=== PATIENT | female | born 1995 | race Hispanic/Latino ===

== ENCOUNTER 2021-09-15 09:20 | Inpatient (IN) | payer MEDICAID, OTHER, SELFPAY ==
[2021-09-15 10:04] VITALS: BMI 39.9
[2021-09-15] MEDS ORDERED: Promethazine HCl 25 MG/ML VIAL IM PRN ×3 (10:45→15:38)
[2021-09-15] MEDS ORDERED: hydrALAZINE 20 MG/ML VIAL SLOW IVP PRN ×2 (10:45→15:38)
[2021-09-15] MEDS ORDERED: Famotidine/PF 20 mg/2ml Vial SLOW IVP PRN (10:45)
[2021-09-15] MEDS ORDERED: Lactated Ringer's 1,000 ML IV SCH (10:45)
[2021-09-15] MEDS ORDERED: Ondansetron PF 4 MG/2 ML Vial IVP PRN ×3 (10:45→15:38)
[2021-09-15] MEDS ORDERED: ceFAZolin 2 GM/Dextrose 50 ML 2 GM in Premix Bag 1 BAG IVPB SCH (10:45)
[2021-09-15] MEDS ORDERED: Azithromycin 500 MG in Sodium Chloride 0.9% 250 ML 250 ML IVPB SCH (10:45)
[2021-09-15] MEDS ORDERED: Bicitra 30 ML UDCUP PO PRN (10:45)
[2021-09-15 11:00] LABS: Hemoglobin 11.6 g/dL (12.0-15.5); Mean Corpuscular HGB CONC 33.9 g/dL (32.0-36.0); Mean Corpuscular Hemoglobin 30.1 pg (27.0-33.0); Mean Corpuscular Volume 88.6 fl (81.6-98.3); Mean Platelet Volume 10.6 fl (7.4-10.4); Platelet Count 221 10x3/uL (150-450); RBC Distribution Width 13.1 % (11.5-14.5); Red Blood Cell (RBC) Count 3.86 10x6/uL (3.90-5.03); White Blood Cell (WBC) Count 9.7 10x3/uL (3.5-10.5)
[2021-09-15 11:31] LABS: SARS-CoV-2 NAA Rapid Test Not Detected (NotDetected)
[2021-09-15] MEDS ORDERED: Morphine PF 10 MG/10 ML VIAL ONE (11:50)
[2021-09-15] MEDS ORDERED: ePHEDrine Sulfate 50 MG/10 ML VIAL ONE (11:51)
[2021-09-15] MEDS ORDERED: Ondansetron PF 4 MG/2 ML Vial ONE (11:51)
[2021-09-15] MEDS ORDERED: Dexamethasone 4 mg/ml Vial ONE (11:51)
[2021-09-15] MEDS ORDERED: Ketorolac Tromethamine 30 MG/ML VIAL ONE (11:51)
[2021-09-15] MEDS ORDERED: Oxytocin 10 UNITS/ML VIAL ONE (11:51)
[2021-09-15] MEDS ORDERED: Methylergonovine 0.2 MG/ML VIAL ONE (12:32)
[2021-09-15] MEDS ORDERED: Naloxone HCl 0.4 mg/ml Vial IVP PRN ×2 (13:09)
[2021-09-15] MEDS ORDERED: Promethazine HCl 25 MG SUPP PR PRN (13:09)
[2021-09-15] MEDS ORDERED: Meperidine HCl/PF 25 MG/ML VIAL SLOW IVP PRN (13:09)
[2021-09-15] MEDS ORDERED: Hydrocerin (Eucerin) Cream 120 gm Jar TOP PRN (13:09)
[2021-09-15] MEDS ORDERED: Naloxone HCl 0.4 mg/ml Vial IV PRN (13:09)
[2021-09-15] MEDS ORDERED: Fentanyl 100 MCG/2 ML VIAL SLOW IVP PRN (13:09)
[2021-09-15] MEDS ORDERED: Ondansetron HCl/PF 4 MG/2 ML Vial IVP PRN (13:09)
[2021-09-15] MEDS ORDERED: diphenhydrAMINE 50 MG/ML VIAL IVP PRN (13:09)
[2021-09-15] MEDS ORDERED: Ketorolac Tromethamine 30 MG/ML VIAL IVP PRN (13:09)
[2021-09-15] MEDS ORDERED: Ketorolac Tromethamine 30 MG/ML VIAL IVP SCH (13:15)
[2021-09-15] MEDS ORDERED: Communication Order-Pharmacy FS SCH (13:15)
[2021-09-15 13:25] LABS: Hep B Surf Ag Non-Reactive S/CO (NonReactive)
[2021-09-15 13:26] LABS: Syphilis Antibody Nonreactive (Nonreactive); Syphilis Antibody Index 0.04 S/CO (<1.00 Non-Reactive)
[2021-09-15] MEDS ORDERED: Boostrix 0.5 ML (Tdap) VIAL IM ONE (15:38)
[2021-09-15] MEDS ORDERED: NS w/ Oxytocin 30 units 500 ML IV SCH (15:38)
[2021-09-15] MEDS ORDERED: diphenhydrAMINE 25 MG CAP PO PRN (15:38)
[2021-09-15] MEDS ORDERED: Bisacodyl 10 MG SUPP PR PRN (15:38)
[2021-09-15] MEDS ORDERED: Lanolin Ointment 7 GM TUBE TOP PRN (15:38)
[2021-09-15] MEDS ORDERED: Simethicone Chewable 80 MG TAB PO PRN (15:38)
[2021-09-15] MEDS: Ketorolac Tromethamine 30 MG/ML VIAL IVP SCH (18:13)
[2021-09-15 19:24] LABS: HBSAg Index 0.21 S/CO (0-0.99)
[2021-09-15] MEDS: Ferrous Sulfate 325 MG TAB PO SCH (22:10)
[2021-09-15] MEDS: Docusate 100 MG CAP PO SCH (22:11)
[2021-09-16] MEDS: Ketorolac Tromethamine 30 MG/ML VIAL IVP SCH ×2 (00:26→06:25)
[2021-09-16] MEDS ORDERED: HYDROcodone/Acetaminophen 5/325 mg Tablet PO PRN (01:15)
[2021-09-16 06:20] LABS: Hemoglobin 9.1 g/dL (12.0-15.5); Mean Corpuscular Hemoglobin 29.6 pg (27.0-33.0); Mean Corpuscular Volume 89.9 fl (81.6-98.3); Platelet Count 203 10x3/uL (150-450); RBC Distribution Width 12.7 % (11.5-14.5); Red Blood Cell (RBC) Count 3.07 10x6/uL (3.90-5.03)
[2021-09-16] MEDS: Ferrous Sulfate 325 MG TAB PO SCH ×3 (07:31→22:25)
[2021-09-16] MEDS: Docusate 100 MG CAP PO SCH ×2 (07:44→22:24)
[2021-09-16] MEDS: Prenatal Vitamin 1 TAB PO SCH (07:45)
[2021-09-16] MEDS: Ibuprofen 800 MG TAB PO SCH ×2 (14:07→22:25)
[2021-09-17] MEDS: Ibuprofen 800 MG TAB PO SCH ×2 (05:40→13:45)
[2021-09-17 07:49] VITALS: BP 97/57; TEMP 98.2
[2021-09-17] MEDS: Prenatal Vitamin 1 TAB PO SCH (07:49)
[2021-09-17] MEDS: Ferrous Sulfate 325 MG TAB PO SCH (07:49)
[2021-09-17] MEDS: Docusate 100 MG CAP PO SCH (07:49)
== END 2021-09-17 17:57 | disposition home or self-care (01) | DRG 788 ==
LOC: CSHLD/OP 09:20 → CSHLD 12:42 → CSHPED 15:20
PROVIDERS: ADMIT Family Medicine; ATTEND Family Medicine
PROC: 10D00Z1 Extraction of Products of Conception, Low, Open Approach (ICD-10-PCS; principal; 2021-09-15)
DX: O34.211 Maternal care for low transverse scar from previous cesarean delivery (principal); Z20.822 Contact with and (suspected) exposure to COVID-19; Z37.0 Single live birth; Z3A.37 37 weeks gestation of pregnancy; O75.82 Onset (spontaneous) of labor after 37 completed weeks of gestation but before 39 completed weeks gestation, with delivery by (planned) cesarean section
CPT/HCPCS: 36415; 36416; 85027; 86780; 86850; 86900; 86901; 87340; J0456; J0690; J1100; J1885; J2210; J2274; J2405; J2590; J7050; S0028; U0002

== ENCOUNTER 2025-03-03 05:47 | Inpatient (IN) | payer MEDICAID, OTHER ==
[2025-03-03 06:42] VITALS: BMI 40.9
[2025-03-03] MEDS ORDERED: hydrALAZINE 20 MG/ML VIAL SLOW IVP PRN ×2 (06:46→14:11)
[2025-03-03] MEDS ORDERED: Famotidine/PF 20 mg/2ml Vial SLOW IVP PRN (06:46)
[2025-03-03] MEDS ORDERED: Ondansetron PF 4 MG/2 ML Vial IVP PRN ×4 (06:46→14:11)
[2025-03-03] MEDS ORDERED: Tranexamic Acid 1,000 MG/10 ML VIAL IVP PRN (06:46)
[2025-03-03] MEDS ORDERED: Methylergonovine 0.2 MG/ML VIAL IM PRN (06:46)
[2025-03-03] MEDS ORDERED: Carboprost 250 MCG/ML AMP IM PRN (06:46)
[2025-03-03] MEDS ORDERED: Diphenoxylate HCl/Atropine Tablet PO PRN ×2 (06:46→19:13)
[2025-03-03] MEDS ORDERED: Bicitra 30 ML UDCUP PO PRN (06:46)
[2025-03-03] MEDS ORDERED: Oxytocin 30 units/NS 500 ML 500 ML IV SCH (06:46)
[2025-03-03 07:03] LABS: Hematocrit 33.5 % (34.9-44.5); Hemoglobin 11.2 g/dL (12.0-15.5); Mean Corpuscular Hemoglobin 29.3 pg (27.0-33.0); Mean Corpuscular Volume 87.7 fL (81.6-98.3); Platelet Count 221 10x3/uL (150-450); Red Blood Cell (RBC) Count 3.82 10x6/uL (3.90-5.03); White Blood Cell (WBC) Count 8.91 10x3/uL (3.5-10.5)
[2025-03-03] MEDS ORDERED: diphenhydrAMINE 50 MG/ML VIAL IVP PRN (07:13)
[2025-03-03] MEDS ORDERED: Meperidine HCl/PF 25 MG (1 mL) VIAL SLOW IVP PRN (07:13)
[2025-03-03] MEDS ORDERED: HYDROmorphone 0.5 MG/0.5 ML SYRINGE SLOW IVP PRN (07:13)
[2025-03-03] MEDS ORDERED: Ketorolac Tromethamine 30 MG (1 mL) VIAL IVP SCH (07:15)
[2025-03-03] MEDS: CEFAZOLIN 2 GM VIAL ONE (07:29)
[2025-03-03 07:40] LABS: Syphilis Antibody Index 0.06 S/CO (<1.00 Non-Reactive)
[2025-03-03 07:41] LABS: Hep B Surf Ag - L&D Non-Reactive S/CO (NonReactive)
[2025-03-03 07:43] LABS: HIV (1/2) Antibody/Antigen Non-Reactive (NonReactive); HIV 1/2 INDEX 0.09 S/CO (<1.00)
[2025-03-03] MEDS: Erythromycin Base 0.5% Oint 1 GM TUBE ONE (09:12)
[2025-03-03] MEDS: Phenylephrine 40 MG/NS 250 ML 250 ML ONE (09:13)
[2025-03-03] MEDS: Dexamethasone 10 MG/ML VIAL ONE (09:13)
[2025-03-03] MEDS: Ondansetron PF 4 MG/2 ML Vial ONE ×2 (09:13)
[2025-03-03] MEDS: Oxytocin 10 UNITS/ML VIAL ONE ×2 (09:13)
[2025-03-03] MEDS ORDERED: diphenhydrAMINE 25 MG CAP PO PRN (14:11)
[2025-03-03] MEDS ORDERED: Lanolin Ointment 7 GM TUBE TOP PRN (14:11)
[2025-03-03] MEDS ORDERED: Bisacodyl 10 MG SUPP PR PRN (14:11)
[2025-03-03] MEDS ORDERED: Simethicone Chewable 80 MG TAB PO PRN (14:11)
[2025-03-03] MEDS ORDERED: Ketorolac Tromethamine 30 MG (1 mL) VIAL IVP PRN (15:00)
[2025-03-03] MEDS: Ketorolac Tromethamine 30 MG (1 mL) VIAL IVP SCH (15:19)
[2025-03-03] MEDS ORDERED: HYDROcodone/Acetaminophen 5/325 mg Tablet PO PRN (19:15)
[2025-03-03] MEDS ORDERED: Meperidine HCl/PF 25 MG (1 mL) VIAL IM PRN (19:15)
[2025-03-04 04:43] LABS: Hematocrit 27.4 % (34.9-44.5); Hemoglobin 9.0 g/dL (12.0-15.5); Mean Corpuscular Hemoglobin 29.1 pg (27.0-33.0); Mean Corpuscular Volume 88.7 fL (81.6-98.3); Platelet Count 194 10x3/uL (150-450); Red Blood Cell (RBC) Count 3.09 10x6/uL (3.90-5.03); White Blood Cell (WBC) Count 10.41 10x3/uL (3.5-10.5)
[2025-03-04] MEDS: Ferrous Sulfate 325 MG TAB PO SCH (05:03)
[2025-03-04] MEDS: Boostrix 0.5 ML (Tdap) VIAL (>/=7 yrs of age) IM ONE (07:10)
[2025-03-04] MEDS: HYDROcodone/Acetaminophen 5/325 mg Tablet PO PRN (07:59)
[2025-03-04] MEDS: Ibuprofen 800 MG TAB PO SCH (14:08)
[2025-03-05 08:28] VITALS: BP 120/57; TEMP 98.2
== END 2025-03-05 13:35 | disposition home or self-care (01) | DRG 788 ==
LOC: CSHLD 05:47 → CSHPP 11:02
PROVIDERS: ADMIT Family Medicine; ATTEND Family Medicine
PROC: 10D00Z1 Extraction of Products of Conception, Low, Open Approach (ICD-10-PCS; principal; 2025-03-03)
DX: O34.211 Maternal care for low transverse scar from previous cesarean delivery (principal); O24.420 Gestational diabetes mellitus in childbirth, diet controlled; Z37.0 Single live birth; Z3A.39 39 weeks gestation of pregnancy; O99.214 Obesity complicating childbirth; O99.02 Anemia complicating childbirth; D64.9 Anemia, unspecified; E66.9 Obesity, unspecified; Z79.899 Other long term (current) drug therapy; Z79.82 Long term (current) use of aspirin
CPT/HCPCS: 36415; 51702; 85027; 86780; 86850; 86900; 86901; 87340; 87389; C1889; J1100; J1885; J2274; J2405; J2590; J7120